=== PATIENT | male | born 1955 | race American Indian/Alaskan Native ===

== ENCOUNTER 2019-03-02 10:48 | Emergency (ER) | payer MEDICAID, OTHER ==
[2019-03-02 10:53] VITALS: BMI 24.3
--- NOTE | 2019-03-02 11:20 | ED PDOC ---
Arrival/HPI - General Chief Complaint: Alcohol Ingestion Time Seen by Provider: 03/02/19 10:58 Historian: Patient, EMS - History of Present Illness Narrative History of Present Illness (Text): 03/02/19 11:22 A 63 year old male with no significant past medical history presents to the emergency department for alcohol intoxication. Stephen reports patient was found wandering the streets. Patient is unsure of how much alcohol he ingested. ROS is limited due to patient's intoxication. Time/Duration: 1-3 hours Symptom Onset: Gradual Symptom Course: Unchanged Activities at Onset: Light Context: Street Past Medical History - Provider Review Nursing Documentation Reviewed: Yes - Infectious Disease Hx of Infectious Diseases: None - Psychiatric Hx Substance Use: No (unk) - Surgical History Other/Comment: unable to obtain Family/Social History - Physician Review Nursing Documentation Reviewed: Yes Family/Social History: No Known Family HX Smoking Status: Unknown If Ever Smoked Hx Alcohol Use: Yes Hx Substance Use: No (unk) Allergies/Home Meds Allergies/Adverse Reactions: Allergies No Known Allergies Allergy (Verified 03/02/19 10:56) Home Medications: Home Meds Medication Instructions Recorded Confirmed Unobtainable 03/02/19 03/02/19 Review of Systems - Review of Systems Systems not reviewed;Unavailable: Intoxicated Physical Exam Vital Signs Reviewed: Yes Vital Signs Temp Pulse Resp BP Pulse Ox 03/02/19 11:01 97.3 F L 58 L 13 128/78 95 Temperature: Hypothermic Blood Pressure: Normal Pulse: Bradycardic Respiratory Rate: Normal Appearance: Positive for: Other (Intoxicated) Mental Status: No: Alert and Oriented X 3 (Alert and Oriented x1) - Systems Exam Head: Present: Atraumatic, Normocephalic Pupils: Present: PERRL Extroacular Muscles: Present: EOMI Conjunctiva: Present: Normal Respiratory/Chest: Present: Clear to Auscultation, Good Air Exchange. No: Respiratory Distress, Accessory Muscle Use Cardiovascular: Present: Regular Rate and Rhythm, Normal S1, S2. No: Murmurs Abdomen: Present: Distention. No: Tenderness Lower Extremity: Present: Edema (+3 pitting edema) Skin: Present: Warm, Dry, Normal Color. No: Rashes Psychiatric: Present: Intoxicated. No: Alert, Oriented x 3 (oriented x1) Medical Decision Making ED Course and Treatment: 03/02/19 11:22 Impression: 63 year old male presenting to the emergency room for alcohol intoxication. Plan: --Labs --Banana Bag -- Alcohol serum -- Glucose -- Reassess and disposition Progress Notes: 03/02/19 12:16 Lactate noted to be 2.7. Fluids iniated. Labs pending. 03/02/19 12:35 Labs reviewed with no leukocytosis or electrolyte abnormalities noted. CXR shows no infiltrate or consolidation. Blood alcohol level is 313. Patient cleares in 8 hours. 03/02/19 15:48 Ammonia 32. VSS. Patient sleeping and protecting his airway. Will continue to monitor. - Lab Interpretations Lab Results: 03/02/19 11:54 03/02/19 11:54 Lab Results 03/02/19 12:07: pO2 31, VBG pH 7.24 L, VBG pCO2 59.0, VBG HCO3 25.3, VBG Total CO2 27.1, VBG O2 Sat (Calc) 46.4, VBG Base Excess -3.1 L, VBG Potassium 3.9, Glucose 78, Lactate 2.7 H, FiO2 21.0, Crit Value Called To Yeni, Crit Value Called By Ab, Blood Gas Notified Time 1214, Sodium 147.0, Chloride 112.0 H, Venous Blood Potassium 3.9 03/02/19 12:07: PT 12.2, INR 1.08, APTT 37.1 03/02/19 11:54: Sodium 148, Potassium 4.2, Chloride 112 H, Carbon Dioxide 21, Anion Gap 19, BUN 12, Creatinine 1.0, Est GFR ( Amer) > 60, Est GFR (Non- Af Amer) > 60, Random Glucose 81, Calcium 8.9, Phosphorus 4.5, Magnesium 2.1, Total Bilirubin 0.4, AST 58, ALT 42, Alkaline Phosphatase 60, Troponin I < 0.01, NT-Pro-B Natriuret Pep 14.5, Total Protein 8.2, Albumin 4.6, Globulin 3.7, [place] min/Globulin Ratio 1.2 03/02/19 11:54: WBC 4.2 L, RBC 4.55, Hgb 14.9, Hct 45.6, MCV 100.2, MCH 32.7, MCHC 32.7, RDW 12.6, Plt Count 268, MPV 9.9, Neut % (Auto) 47.0 L, Lymph % (Auto) 38.2 H, [place] % (Auto) 13.9 H, Eos % (Auto) 0.7 L, Baso % (Auto) 0.2, Lymph # (Auto) 1.6, [place] # (Auto) 0.6, Eos # (Auto) 0.0, Baso # (Auto) 0.01, Absolute Neuts (auto) 1.95 I have reviewed the lab results: Yes - RAD Interpretation Narrative RAD Interpretations (Text): 03/02/19 12:52 Procedure: Chest X-ray Dictator: Kaci Abrams Impression: No infiltrate appreciated. Other findings as above. Helper Animal Laboratory: Radiologist - Scribe Statement The provider has reviewed the documentation as recorded by the Scribe Gi Durbin All medical record entries made by the Scribe were at my direction and personally dictated by me. I have reviewed the chart and agree that the record accurately reflects my personal performance of the history, physical exam, medical decision making, and the department course for this patient. I have also personally directed, reviewed, and agree with the discharge instructions and disposition. Disposition/Present on Arrival - Present on Arrival Any Indicators Present on Arrival: No History of DVT/PE: No History of Uncontrolled Diabetes: No Urinary Catheter: No History of Decub. Ulcer: No History Surgical Site Infection Following: None - Disposition Have Diagnosis and Disposition been Completed?: Yes Diagnosis: Alcohol intoxication Disposition: HOME/ ROUTINE Disposition Time: 19:19 Patient Plan: Discharge Condition: IMPROVED Discharge Instructions (ExitCare): Alcohol Abuse and Alcoholism (DC) Print Language: ESTONIAN Additional Instructions: All medical record entries made by the Scribe were at my direction and personally dictated by me. I have reviewed the chart and agree that the record accurately reflects my personal performance of the history, physical exam, medical decision making, and the department course for this patient. I have also personally directed, reviewed, and agree with the discharge instructions and disposition. Please try to cut down on your alcohol intake Please visit your PCP Referrals: Debbie Cortes MD [Medical Doctor] - Follow up with primary [facility] at [facility] [place] [Outside] - Follow up with primary Forms: [employer] (Czech)
[2019-03-02 12:05] LABS: BASO # 0.01 K/mm3 (0.0-2.0); BASO % 0.2 % (0.0-3.0); EOS % 0.7 % (1.5-5.0); HEMOGLOBIN 14.9 g/dL (14.0-18.0); LYMPH # 1.6 (1.2-3.4); LYMPH % 38.2 % (22.0-35.0); MEAN CELL VOLUME 100.2 fl (80.0-105.0); MEAN CORPUSCULAR HEMOGLOBIN 32.7 pg (25.0-35.0); MEAN CORPUSCULAR HGB CONC 32.7 g/dl (31.0-37.0); MEAN PLATELET VOLUME 9.9 fl (7.0-11.0); MONO # 0.6 (0.1-0.6); MONO % 13.9 % (1.0-6.0); RBC 4.55 10^6/uL (3.5-6.1); RED CELL DISTRIBUTION WIDTH 12.6 % (11.5-14.5); WHITE BLOOD COUNT 4.2 10^3/uL (4.5-11.0)
[2019-03-02] MEDS ORDERED: Multivitamin (MVI) 10 ML, Thiamine 100 MG, Folic Acid 1 MG in Dextrose 5% In Water 1,00... IV ONE (12:11)
[2019-03-02 12:14] LABS: VENOUS BLOOD GAS BASE EXCESS -3.1 mmol/L (0.0-2.0); VENOUS BLOOD GAS PO2 31 mm/Hg (30-55); VENOUS BLOOD PH 7.24 (7.32-7.43)
[2019-03-02 12:20] LABS: ALB/GLOB RATIO 1.2 (1.1-1.8); ALBUMIN 4.6 g/dL (3.0-4.8); ALT/SGPT 42 U/L (7-56); AST/SGOT 58 U/L (17-59); BLOOD UREA NITROGEN 12 mg/dL (7-21); CALCIUM 8.9 mg/dL (8.4-10.5); GFR NON-AFRICAN AMERICAN > 60
[2019-03-02 12:21] LABS: INR 1.08; PARTIAL THROMBOPLASTIN TIME 37.1 Seconds (26.9-38.3); PROTHROMBIN TIME 12.2 SECONDS (9.4-12.5)
[2019-03-02 12:33] LABS: B-TYPE NATRIURETIC PEPTIDE 14.5 pg/mL (0-450); TROPONIN I < 0.01 ng/mL
--- NOTE | 2019-03-02 12:42 | RAD ---
Date of service: 03/02/2019 HISTORY: Sepsis Patient COMPARISON: No prior. TECHNIQUE: 1 view obtained. FINDINGS: LUNGS: No consolidation. Lung volumes within normal limits. PLEURA: No significant pleural effusion identified, no pneumothorax apparent. CARDIOVASCULAR: There is presence of aortic atherosclerotic calcification on x-ray. Minimal cardiomegaly. Tortuous unfolded thoracic aorta No significant appearing pulmonary venous congestion. OSSEOUS STRUCTURES: Prominent 1st coaster cartilaginous junctional calcification and osseous hypertrophic changes. VISUALIZED UPPER ABDOMEN: Normal. OTHER FINDINGS: None. IMPRESSION: No infiltrate appreciated. Other findings as above.
[2019-03-02 13:00] LABS: URINE BILIRUBIN NEGATIVE (NEGATIVE); URINE BLOOD TRACE-LYSED (NEGATIVE); URINE GLUCOSE (UA) NEGATIVE (NEGATIVE); URINE LEUKOCYTE ESTERASE NEGATIVE Leu/uL (NEGATIVE); URINE PROTEIN 100 mg/dL (<30 mg/dL); URINE UROBILINOGEN 0.2 E.U./dL (<1 E.U./dL)
[2019-03-02 13:19] LABS: URINE APPEARANCE CLEAR (CLEAR); URINE COLOR YELLOW (YELLOW)
[2019-03-02 13:23] LABS: URINE BACTERIA MANY /hpf; URINE EPITHELIAL CELLS 0 - 2 /hpf (0-5); URINE WBC 0 - 2 /hpf (0-6)
[2019-03-02 13:24] LABS: URINE AMORPHOUS SEDIMENT FEW /hpf; URINE FINE GRANULAR CAST 0 - 2 /hpf; URINE HYALINE CAST 0 - 2 /hpf
[2019-03-02 15:35] VITALS: RESP 18
[2019-03-02 15:53] LABS: VENOUS BLOOD GAS BASE EXCESS -11.6 mmol/L (0.0-2.0); VENOUS BLOOD GAS PO2 204 mm/Hg (30-55); VENOUS BLOOD PH 7.18 (7.32-7.43)
[2019-03-02] MEDS ORDERED: Sodium Chloride 0.9% 1,000 ML IV STA (17:01)
[2019-03-02 22:10] VITALS: BP 125/66; PULSE 80; TEMP 98; O2SAT 96
== END 2019-03-02 19:35 | disposition home or self-care (01) ==
LOC: ED 10:48
DX: F10.129 Alcohol abuse with intoxication, unspecified (principal)
CPT/HCPCS: 71045; 80053; 81001; 82140; 82803; 82948; 83735; 83880; 84100; 84484; 85025; 85610; 85730; 87040; 87086; 96374; 99283; G0480; J3411; J7030; J7070